=== PATIENT | male | born 1985 | race African-American/Black ===

== ENCOUNTER 2016-08-12 03:26 | Emergency (ER) | payer OTHER ==
--- NOTE | ~2016-08-12 | CR282 ---
[facility] A Service of [facility] RADIOLOGY TEXT RESULTS PATIENT: ANY GARG LOCATION: [facility] : 83 UNIT #: [id number] AGE: [address]: Gary Lopez MD SEX: M ORDER DR: [id number] [facility] [address] [place], [place] [address] [id number] E MR#: [id number] Acc #: [id number] NAME: ANY GARG : 1985 SEX: M STUDY DATE/TIME: 08/12/2016 04:05 UNIT: [facility] ROOM: STUDY DESCRIPTION: CR Wrist Min 3 View Rt Attending Physician: Gary Lopez M.D. Ordering Physician: Caleb Stuart Aprn Primary Care Physician: No Primary Care Physician MEDICAL IMAGING REPORT This report is preliminary unless electronic signature is present EXAM Right wrist, 08/12 at 04:05. INDICATIONS Generalized wrist pain for 1 day. FINDINGS Wrist evaluation in multiple projections shows normal mineralization of the bony structures about the wrist and satisfactory articular relationship of the radius and ulna to the proximal carpal row and of the distal carpal segments to the metacarpal bases. There is no indication of fracture or dislocation, and no soft tissue radiopaque foreign body is present. No congenital defects are apparent. IMPRESSION Normal wrist. Dictated by... Augustine Anderson Jr., M.D. THIS IS AN ELECTRONICALLY VERIFIED REPORT Augustine Anderson Jr., M.D. at 08/12/2016 10:00 PM CHARISMA/[place] TD: 08/12/2016 10:53 JOB #: [id number] MEDICAL IMAGING REPORT COPY
--- NOTE | ~2016-08-12 | CR181 ---
[facility] A Service of [facility] & [facility] RADIOLOGY TEXT RESULTS PATIENT: ANY GARG LOCATION: [facility] : 83 UNIT #: [id number] AGE: [address]: Gary Lopez MD SEX: M ORDER DR: [id number] [facility] [address] [place], [place] [address] [id number] E MR#: [id number] Acc #: [id number] NAME: ANY GARG : 1985 SEX: M STUDY DATE/TIME: 08/12/2016 04:03 UNIT: [facility] ROOM: STUDY DESCRIPTION: CR Lumbar Spine 2 or 3 Views Attending Physician: Gary Lopez M.D. Ordering Physician: Caleb Stuart Aprn Primary Care Physician: Primary Care Physician No MEDICAL IMAGING REPORT This report is preliminary unless electronic signature is present EXAM Lumbar spine 08/12/2016 0403 hours INDICATION Generalized back pain for 1 day. FINDINGS AP and lateral projections of the lumbar segment show good mineralization of both anterior and posterior elements. They are all anatomically normal without indication of fracture, dislocation, or malignant change of a sclerotic or lytic type. There is no congenital defect noted. The sacroiliac joints are normal. IMPRESSION Normal lumbar spine. Dictated by... Augustine Anderson Jr., M.D. THIS IS AN ELECTRONICALLY VERIFIED REPORT Augustine Anderson Jr., M.D. at 08/12/2016 10:00 PM CHARISMA/oly TD: 08/12/2016 10:55 JOB #: [id number] MEDICAL IMAGING REPORT COPY
== END 2016-08-12 04:38 | disposition home or self-care (01) ==
LOC: CED 03:26
DX: S39.012A Strain of muscle, fascia and tendon of lower back, initial encounter (principal); S60.211A Contusion of right wrist, initial encounter; V49.40XA Driver injured in collision with unspecified motor vehicles in traffic accident, initial encounter; Y92.410 Unspecified street and highway as the place of occurrence of the external cause
CPT/HCPCS: 72100; 73110; 99284

== ENCOUNTER 2017-01-25 19:07 | Emergency (ER) | payer OTHER ==
[~2017-01-25] VITALS: Ht 190.5 cm; Wt 108.9 kg
== END 2017-01-25 20:35 | disposition home or self-care (01) ==
LOC: CED 19:07
DX: K08.89 Other specified disorders of teeth and supporting structures (principal)
CPT/HCPCS: 99282